=== PATIENT | female | born 2005 | race African-American/Black ===

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

== ENCOUNTER → 2023-04-13 | Outpatient (CLI) | payer OTHER ==
[2023-04-13 21:27] LABS: Basophils # (A) 0.04 X 10*3/uL (0.00-0.10); Basophils % (A) 0.6 %; Eosinophils # (A) 0.18 X 10*3/uL (0.04-0.35); Eosinophils % (A) 2.5 %; HCT 37.1 % (37.2-46.3); HGB 11.8 d/dL (12.0-15.0); Lymphocytes # (A) 3.05 X 10*3/uL (0.90-5.00); Lymphocytes % (A) 42.4 %; MCH 26.3 pg (27.0-32.0); MCHC 31.8 d/dL (32.0-37.0); MCV 82.6 FL (80.0-97.0); Mean Platelet Volume 10.2 FL (9.5-12.2); Monocytes # (A) 0.62 X 10*3/uL (0.20-1.00); Monocytes % (A) 8.6 %; NRBC Per 100 WBC 0 X 10*3/uL (0.00-0.01); Neutrophils # (A) 3.29 X 10*3/uL (1.80-7.70); Neutrophils % (A) 45.8 %; Platelet Count 479 X 10*3/uL (140-440); RBC 4.49 X 10*6/uL (4.10-5.20); RDW 13.7 % (11.5-14.5); WBC 7.19 X 10*3/uL (4.50-10.00)
[2023-04-13 22:00] LABS: ALT 15 U/L (8-44); AST 19 U/L (13-35); Albumin 4.4 d/dL (3.8-4.9); Albumin/Globulin Ratio 1.42 Ratio (1.60-3.17); Alkaline Phosphatase 90 U/L (41-126); BUN/Creat Ratio 12.88 Ratio (12.00-20.00); Blood Urea Nitrogen 10.3 mg/dL (9.0-27.0); Calcium 10.3 mg/dL (8.7-10.3); Carbon Dioxide 22.5 mmol/L (21.6-31.8); Chloride 105 mmol/L (96-109); Chol/HDL Ratio 2.39 Ratio; Ferritin 10.5 ng/mL (10.0-291.0); Globulin 3.1 d/dL (1.6-3.3); Glucose 85 mg/dL (70-110); Iron 39 UG/DL (50-170); LDL Cholesterol,Calculated 87.1 mg/dL (0.0-131.0); Potassium 4.3 mmol/L (3.5-5.5); Sodium 138 mmol/L (135-145); T4, Free (Free Thyroxine) 1.04 ng/dL (0.83-1.43); Total Bilirubin 0.2 mg/dL (0.3-1.2); Total Protein 7.5 d/dL (6.2-8.2); VLDL Calculation 14.68 mg/dL (5.00-40.00)
== END | disposition home or self-care (01) ==
LOC: LABWHC1 14:14
PROVIDERS: ATTEND Pediatrics
DX: E88.81 Metabolic syndrome and other insulin resistance (principal); D50.9 Iron deficiency anemia, unspecified; E78.2 Mixed hyperlipidemia
CPT/HCPCS: 36415; 80053; 80061; 82728; 83036; 83540; 84439; 84443; 84466; 85025

== ENCOUNTER 2024-03-16 21:43 | Emergency (ER) | payer OTHER ==
[2024-03-16 21:58] VITALS: RESP 16
--- NOTE | 2024-03-16 22:23 | ED ---
ENT HPI - General Source: patient, RN notes reviewed Mode of arrival: ambulatory Limitations: no limitations <Geneva Toro - Last Filed: 03/16/24 22:22> <Mahin Allred - Last Filed: 03/17/24 00:52> - General Chief complaint: Dental/Oral Stated complaint: Bump in mouth Time Seen by Provider: 03/16/24 22:22 - History of Present Illness Initial comments: Quick note: 18-year-old female presented to the ER with a chief complaint of a lump on her right jaw. She states she noticed it about 1 weeks ago. She denies any cavities, broken teeth, fevers or chills. 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 Denies any difficulty swallowing or breathing. (Geneva Toro) 18-year-old female presenting to the ED with a chief complaint of right dental pain. Patient reports about a week ago noticed a small bump to the right side of her jaw. Today states that it started to hurt. No fever or chills. No dyspnea. No drooling. No difficulties eating or drinking. No other complaints at this time. (Mahin Allred) - Related Data Previous Rx's Medication Instructions Recorded Amoxic-Pot Clav 875-125Mg 1 tab PO Q12HR 7 Days #14 tab 03/17/24 [Augmentin 875-125] Allergies Allergy/AdvReac Type Severity Reaction Status Date / Time No Known Allergies Allergy Verified 03/16/24 21:55 Review of Systems ROS Other: All systems not noted in ROS Statement are negative. <Geneva Toro - Last Filed: 03/16/24 22:22> ROS Other: All systems not noted in ROS Statement are negative. <Mahin Allred - Last Filed: 03/17/24 00:52> ROS Statement: Those systems with pertinent positive or pertinent negative responses have been documented in the HPI. Past Medical History Past Medical History: No Reported History Additional Past Medical History / Comment(s): pre diabetic History of Any Multi-Drug Resistant Organisms: None Reported Past Surgical History: No Surgical Hx Reported Past Psychological History: No Psychological Hx Reported Smoking Status: Never smoker Past Alcohol Use History: Occasional Past Drug Use History: None Reported <Geneva Toro - Last Filed: 03/16/24 22:22> General Exam Limitations: no limitations <Geneva Toro - Last Filed: 03/16/24 22:22> General appearance: alert, in no apparent distress Eye exam: Present: normal appearance ENT exam: Present: other (Right periodontal abscess poor dentition. No significant oropharyngeal swelling. Tolerating secretions. No stridor.) Neck exam: Present: normal inspection Respiratory exam: Present: normal lung sounds bilaterally Cardiovascular Exam: Present: regular rate GI/Abdominal exam: Present: soft, normal bowel sounds. Absent: distended, tenderness, guarding, rebound, rigid Neurological exam: Present: alert, oriented X3 Skin exam: Present: warm, dry <Mahin Allred - Last Filed: 03/17/24 00:52> - General Exam Comments Initial Comments: Visual Physical Exam Vital signs reviewed General: Well-appearing, nontoxic, no acute distress. Head: Normocephalic, atraumatic Eyes: PERRLA, EOMI ENT: Airway patent Chest: Nonlabored breathing Skin: No visual rash, normal skin tone Neuro: Alert and oriented 3 Musculoskeletal: No gross abnormalities (Geneva Toro) Course Vital Signs 03/16/24 21:56 Temperature 98.7 F Pulse Rate 90 Respiratory 16 Rate Blood Pressure 105/69 O2 Sat by Pulse 99 Oximetry Medical Decision Making <Geneva Toro - Last Filed: 03/16/24 22:22> <Mahin Allred - Last Filed: 03/17/24 00:52> - Medical Decision Making I performed the quick note portion of this chart. Electronically signed by Geneva Toro PA-C (Geneva Toro) Was pt. sent in by a medical professional or institution ([facility], [employer], urgent care, hospital, or senior living...) When possible be specific @ -No Did you speak to anyone other than the patient for history (EMS, parent, family, police, friend...)? What history was obtained from this source @ -No Did you review nursing and triage notes (agree or disagree)? Why? @ -I reviewed and agree with nursing and triage notes Were old charts reviewed (outside hosp., previous admission, EMS record, old EKG, old radiological studies, urgent care reports/EKG's, senior living records)? Report findings @ -No old charts were reviewed Differential Diagnosis (chest pain, altered mental status, abdominal pain women, abdominal pain men, vaginal bleeding, weakness, fever, dyspnea, syncope, headache, dizziness, GI bleed, back pain, seizure, CVA, palpatations, mental health, musculoskeletal)? @ -Dental carry, Donell's angina, parapharyngeal abscess. This not meant to be an all-inclusive list. EKG interpreted by me (3pts min.). @ -None X-rays interpreted by me (1pt min.). @ -None done CT interpreted by me (1pt min.). @ -None done U/S interpreted by me (1pt. min.). @ -None done What testing was considered but not performed or refused? (CT, X-rays, U/S, labs)? Why? @ -None What meds were considered but not given or refused? Why? @ -None Did you discuss the management of the patient with other professionals (professionals i.e. , PA, [employer]ATION HELPER, lab, RT, psych nurse, psychosocial rehabilitation counselor, multimedia services manager, teacher, animal control officer, rn case mgr)? Give summary @ -No Was smoking cessation discussed for >3mins.? @ -No Was critical care preformed (if so, how long)? @ -No Were there social determinants of health that impacted care today? How? (Home lessness, low income, unemployed, alcoholism, drug addiction, transportation, low edu. Level, literacy, decrease access to med. care, [facility] [facility], rehab)? @ -No Was there de-escalation of care discussed even if they declined (Discuss DNR or withdrawal of care, Hospice)? DNR status @ -No What co-morbidities impacted this encounter? (DM, HTN, Smoking, COPD, CAD, Cancer, CVA, ARF, Chemo, Hep., AIDS, mental health diagnosis, sleep apnea, morbid obesity)? @ -None Was patient admitted / discharged? Hospital course, mention meds given and route, prescriptions, significant lab abnormalities, going to OR and other pertinent info. @ -Discharge 18-year-old female presents to the ED with complaints of swelling on the right side of her jaw with 1 day of pain. On examination appears to have a periodontal abscess with surrounding poor dentition. No evidence of Donell's angina at this time. She is tolerating secretions with no stridor. No significant oropharyngeal swelling. Discharged home with starter pack of Augmentin and prescription for Augmentin. Advise close follow-up with a dentist. Discussed return precaution with patient who verbalized agreement. Undiagnosed new problem with uncertain prognosis? @ -No Drug Therapy requiring intensive monitoring for toxicity (Heparin, Nitro, Insulin, Cardizem)? @ -No Were any procedures done? @ -No Diagnosis/symptom? @ -Periodontal abscess Acute, or Chronic, or Acute on Chronic? @ -Acute Uncomplicated (without systemic symptoms) or Complicated (systemic symptoms)? @ -Uncomplicated Side effects of treatment? @ -No Exacerbation, Progression, or Severe Exacerbation? @ -No Poses a threat to life or bodily function? How? (Chest pain, [place], [place], pneumonia, PE, COPD, DKA, ARF, appy, cholecystitis, CVA, Diverticulitis, Homicidal, Suicidal, threat to staff... and all critical care pts) @ -No (Mahin Allred) Disposition <Geneva Toro - Last Filed: 03/16/24 22:22> Is patient prescribed a controlled substance at d/c from ED?: No Time of Disposition: 00:52 <Mahin Allred - Last Filed: 03/17/24 00:52> Clinical Impression: Periodontal abscess Disposition: HOME SELF-CARE Condition: Good Instructions (If sedation given, give patient instructions): Dental Abscess (ED) Additional Instructions: Please return to the Emergency Department if symptoms worsen or any other concerns. Please follow-up with a dentist. Prescriptions: Amoxic-Pot Clav 875-125Mg [Augmentin 875-125] 1 tab PO Q12HR 7 Days #14 tab Referrals: None,Stated [Primary Care Provider] - 1-2 days
[2024-03-17] MEDS: AMOXIC-POT CLAV 875MG STARTER PACK 2 TAB BTL PO STA (01:05)
[2024-03-17 01:10] VITALS: BP 111/71; PULSE 88; TEMP 98.5
== END 2024-03-17 01:09 | disposition home or self-care (01) ==
LOC: EC 21:43
DX: K05.219 Aggressive periodontitis, localized, unspecified severity (principal)
CPT/HCPCS: 81025; 99283

== ENCOUNTER 2024-06-02 11:32 | Emergency (ER) | payer SELFPAY ==
--- NOTE | 2024-06-02 12:05 | ED ---
General Adult HPI - General Chief complaint: Wound/Laceration Stated complaint: R hand lac Time Seen by Provider: 06/02/24 11:48 Source: patient, RN notes reviewed Mode of arrival: ambulatory Limitations: no limitations - History of Present Illness Initial comments: 18 [id number] presents with laceration to right 4th finger after "cutting cans" thirty minutes ago, states that the cans were free from rust or dirt. Denies other associated symptoms. Patient states she is up-to-date on her tetanus. - Related Data Previous Rx's Medication Instructions Recorded Amoxic-Pot Clav 875-125Mg 1 tab PO Q12HR 7 Days #14 tab 03/17/24 [Augmentin 875-125] Allergies Allergy/AdvReac Type Severity Reaction Status Date / Time No Known Allergies Allergy Verified 06/02/24 11:36 Review of Systems ROS Statement: Those systems with pertinent positive or pertinent negative responses have been documented in the HPI. ROS Other: All systems not noted in ROS Statement are negative. Past Medical History Past Medical History: No Reported History Additional Past Medical History / Comment(s): pre diabetic History of Any Multi-Drug Resistant Organisms: None Reported Past Surgical History: No Surgical Hx Reported Past Psychological History: No Psychological Hx Reported Smoking Status: Never smoker Past Alcohol Use History: Occasional Past Drug Use History: None Reported General Exam Limitations: no limitations Head exam: Present: atraumatic, normocephalic, normal inspection Respiratory exam: Present: normal lung sounds bilaterally. Absent: respiratory distress, wheezes, rales, rhonchi, stridor Cardiovascular Exam: Present: regular rate, normal rhythm, normal heart sounds. Absent: systolic murmur, diastolic murmur, rubs, gallop, clicks Extremities exam: Present: other (Right hand fourth digit there is a 1 cm laceration on the dorsal aspect) Course Vital Signs 06/02/24 11:33 Temperature 98.6 F Pulse Rate 87 Respiratory 18 Rate Blood Pressure 125/85 O2 Sat by Pulse 100 Oximetry Procedures - Laceration Laceration #1 Consent Obtained: verbal consent Indication: laceration Site: hand (Right hand fourth digit) Size (cm): 1 Description: linear Depth: simple, single layer Anesthetic Used: lidocaine 1% Anesthesia Technique: local infiltration Amount (mls): 2 Pre-repair: wound explored, irrigated extensively, deep structures intact Type of Sutures: nylon Size of Sutures: 4-0 Number of Sutures: 2 Technique: simple, interrupted Patient Tolerated Procedure: well, no complications Medical Decision Making - Medical Decision Making Was pt. sent in by a medical professional or institution ([facility], [employer], urgent care, hospital, or longterm...) When possible be specific @ -No Did you speak to anyone other than the patient for history (EMS, parent, family, police, friend...)? What history was obtained from this source @ -No Did you review nursing and triage notes (agree or disagree)? Why? @ -I reviewed and agree with nursing and triage notes Were old charts reviewed (outside hosp., previous admission, EMS record, old EKG, old radiological studies, urgent care reports/EKG's, longterm records)? Report findings @ -No old charts were reviewed Differential Diagnosis (chest pain, altered mental status, abdominal pain women, abdominal pain men, vaginal bleeding, weakness, fever, dyspnea, syncope, headache, dizziness, GI bleed, back pain, seizure, CVA, palpatations, mental health, musculoskeletal)? @ -Laceration, abrasion EKG interpreted by me (3pts min.). @ -As above X-rays interpreted by me (1pt min.). @ -None done CT interpreted by me (1pt min.). @ -None done U/S interpreted by me (1pt. min.). @ -None done What testing was considered but not performed or refused? (CT, X-rays, U/S, labs)? Why? @ -None What meds were considered but not given or refused? Why? @ -None Did you discuss the management of the patient with other professionals (professionals i.e. [facility], [employer], lab, RT, psych nurse, social work instructor, reporting developer, teacher, conservation enforcement officer, pillowcase cutter)? Give summary @ -No Was smoking cessation discussed for >3mins.? @ -No Was critical care preformed (if so, how long)? @ -No Were there social determinants of health that impacted care today? How? (Homelessness, low income, unemployed, alcoholism, drug addiction, transportation, low edu. Level, literacy, decrease access to med. care, shelter, rehab)? @ -No Was there de-escalation of care discussed even if they declined (Discuss DNR or withdrawal of care, Hospice)? DNR status @ -No What co-morbidities impacted this encounter? (DM, HTN, Smoking, COPD, CAD, Cancer, CVA, ARF, Chemo, Hep., AIDS, mental health diagnosis, sleep apnea, morbid obesity)? @ -None Was patient admitted / discharged? Hospital course, mention meds given and route, prescriptions, significant lab abnormalities, going to OR and other pertinent info. @ -Discharge patient had laceration simple sutures applied return parens discussed wound care discussed Undiagnosed new problem with uncertain prognosis? @ -No Drug Therapy requiring intensive monitoring for toxicity (Heparin, Nitro, Insulin, Cardizem)? @ -No Were any procedures done? @ -Repair Diagnosis/symptom? @ -Finger laceration] Acute, or Chronic, or Acute on Chronic? @ -Acute Uncomplicated (without systemic symptoms) or Complicated (systemic symptoms)? @ -Uncomplicated Side effects of treatment? @ -No Exacerbation, Progression, or Severe Exacerbation? @ -No Poses a threat to life or bodily function? How? (Chest pain, [place], [place], pneumonia, PE, COPD, DKA, ARF, appy, cholecystitis, CVA, Diverticulitis, Homicidal, Suicidal, threat to staff... and all critical care pts) @ -No Disposition Clinical Impression: Finger laceration Disposition: HOME SELF-CARE Condition: Stable Instructions (If sedation given, give patient instructions): Care For Your Stitches (ED) Additional Instructions: Have sutures removed in 10 days. Please return to the Emergency Department if symptoms worsen or any other concerns. Is patient prescribed a controlled substance at d/c from ED?: No Referrals: Quincy Chang MD [Primary Care Provider] - 1-2 days Time of Disposition: 12:25
[2024-06-02] MEDS: LIDOCAINE 1% INJ 10MG/ML (20 ML MDV) SQ ONE (12:10)
[2024-06-02] MEDS: BACITRACIN OINT 1 EACH PACKET TOPICAL ONE (12:25)
[2024-06-02 12:32] VITALS: BP 120/77; PULSE 67; RESP 16; TEMP 98
== END 2024-06-02 12:32 | disposition home or self-care (01) ==
LOC: EC 11:32 → SUPCPDRO 11:32 → EC 12:32
CPT/HCPCS: 12001; 99282

== ENCOUNTER → 2024-12-23 | Outpatient (CLI) | payer OTHER ==
[2024-12-23 18:19] LABS: Basophils # (A) 0.06 X 10*3/uL (0.00-0.10); Basophils % (A) 0.9 %; Eosinophils # (A) 0.07 X 10*3/uL (0.04-0.35); HCT 36.7 % (37.2-46.3); HGB 11.7 g/dL (12.0-15.0); Lymphocytes # (A) 3.08 X 10*3/uL (0.90-5.00); Lymphocytes % (A) 45.9 %; MCH 26.2 pg (27.0-32.0); MCHC 31.9 g/dL (32.0-37.0); MCV 82.3 FL (80.0-97.0); Mean Platelet Volume 10.9 FL (9.5-12.2); Monocytes # (A) 0.46 X 10*3/uL (0.20-1.00); Monocytes % (A) 6.9 %; NRBC Per 100 WBC 0 X 10*3/uL (0.00-0.01); Neutrophils # (A) 3.03 X 10*3/uL (1.80-7.70); Neutrophils % (A) 45.2 %; Platelet Count 441 X 10*3/uL (140-440); RBC 4.46 X 10*6/uL (4.10-5.20); RDW 13.1 % (11.5-14.5); WBC 6.71 X 10*3/uL (4.50-10.00)
[2024-12-23 19:10] LABS: ALT 22 U/L (8-44); AST 24 U/L (13-35); Albumin 4.4 g/dL (3.8-4.9); Albumin/Globulin Ratio 1.42 Ratio (1.60-3.17); Alkaline Phosphatase 85 U/L (41-126); Blood Urea Nitrogen 12.4 mg/dL (9.0-27.0); Calcium 10.1 mg/dL (8.7-10.3); Carbon Dioxide 20.5 mmol/L (21.6-31.8); Chloride 107 mmol/L (96-109); Ferritin 14.3 ng/mL (10.0-291.0); Globulin 3.1 g/dL (1.6-3.3); Glucose 69 mg/dL (70-110); LDL Cholesterol,Calculated 93.3 mg/dL (0.0-131.0); Sodium 141 mmol/L (135-145); Total Bilirubin 0.3 mg/dL (0.3-1.2); Total Protein 7.5 g/dL (6.2-8.2); VLDL Calculation 13.18 mg/dL (5.00-40.00)
== END | disposition home or self-care (01) ==
LOC: LABWHC1 13:48
PROVIDERS: ATTEND Nurse Practitioner Primary Care
DX: Z00.01 Encounter for general adult medical examination with abnormal findings (principal); D64.9 Anemia, unspecified; E66.812 Obesity, class 2; R73.03 Prediabetes
CPT/HCPCS: 36415; 80053; 80061; 82728; 83036; 84439; 84443; 85025